=== PATIENT | male | born 1990 | race Caucasian/White ===

== ENCOUNTER 2016-08-01 06:22 | Inpatient (IN) | payer OTHER ==
[~2016-08-01] VITALS: Ht 165.1 cm; Wt 60.9 kg
--- NOTE | ~2016-08-01 | PN ---
PATIENT'S NAME: MIRIAN PRYOR [facility] AGE: 25 Y [address] ROOM: [id number] [place], [place] [address] LOCATION: [facility]U ADMIT DATE: 08/01/2016 Progress Notes DISCHARGE DATE: FAMILY PHYSICIAN: PHYSICIAN, NO ATTENDING PHYSICIAN: Kj LOUIS DATE OF SERVICE: 08/02/2016 SUBJECTIVE: This is an otherwise healthy 25-year-old male who apparently two and half weeks ago had abdominal pain and was being empirically treated for peptic ulcer disease. He also had urinary tract symptomatology and he was being treated by Pyridium. His abdominal pain got worse, in was in the suprapubic area in the right lower quadrant, and he came to the emergency room yesterday where he was found to have a ruptured appendix with a thick wall large abscess, contiguous with his bladder. On my review of the CT scan, it appears that he also has a phlegmon in the area. The plan was to treat him as a missed appendicitis and drain this percutaneously and do most likely an interval appendectomy. However, he has not been doing well. His urine output has been decreased. His pain has been increased. He had spiked a fever of over 102 last night. He has a leukocytosis on today's labs and he has only put out 15 mL since the drain was inserted and it looks sanguineous more than purulent and I am not sure that the pus may be too thick to go through the catheter. I have reviewed the CT scan of the catheter placement and looks fine. PHYSICAL EXAMINATION: He looks decidedly peaked. On his abdomen, he has almost localized peritoneal signs in the right lower quadrant suprapubic area with mild rebound tenderness in his upper abdomen and left lower quadrant. He has decreased bowel sounds. He has no masses or organomegaly. No hernias. Extremities are perfused. IMPRESSION: I believe this patient may have inadequate drainage and not because of the catheter is not in the proper place, but because the drainage may be too thick to come through the catheter and also we may be dealing with a combination of an abscess and a phlegmon in large part based on the thickness of the wall and the contiguous inflammation around this. I also have added Flagyl for better anaerobic coverage and I have hydrated him. I had nurse to scan the patient because I am concerned because of the contiguous nature of the bladder that he really was not able to void and he had over 400 in his bladder. I asked him to void, he voided 300. I have increased his fluids to hydrate him better. I have given close instructions to the nurses in terms of watching his I and O very carefully. I have also placed him on Protonix as he is on clear liquids and not taking much and I would rather decrease it and do a CT on the stomach. PATIENT'S NAME: MIRIAN PRYOR [facility] AGE: 25 Y [address] ROOM: [place] [address] LOCATION: [facility] ADMIT DATE: 08/01/2016 Progress Notes DISCHARGE DATE: FAMILY PHYSICIAN: PHYSICIAN, BARRIE ATTENDING PHYSICIAN: Kj LOUIS I am obtaining a CT scan first thing in the morning and make him n.p.o. and there is a distinct possibility that he will require open drainage and a further procedure tomorrow, if indeed his physical examination, CT scan, etc., does not improve. I have explained this in great detail to the nursing staff as well as the patient and the . MD LEE DEVINE/eduardo /[id number] d: 08/02/16 1246 t: 08/15/16 0647, PROGRESS NOTES
--- NOTE | ~2016-08-01 | HP ---
PATIENT'S NAME: MIRIAN NEWTON [facility] AGE: 25 Y [address] ROOM: [place] [address] [place] [facility] [facility] [place] DATE: 08/01/2016 History & Physical DISCHARGE DATE: FAMILY PHYSICIAN: PHYSICIAN, NO ATTENDING PHYSICIAN: Gamal Carvalho DATE OF SERVICE: CHIEF COMPLAINT: Acute appendicitis with abscess. HISTORY OF PRESENT ILLNESS: Mirian Newton is a 25-year-old male who presented to the emergency room early this morning with complaints of pain across his lower abdomen. The patient states that he first had issues about 16 days ago. He states that he worked all day, got home, and played with the kids. He developed shooting pains and sharp pains in the stomach along with nausea and vomiting. He presented to the emergency room for evaluation and workup was benign. The patient was instructed to follow up with his primary care physician in a few days. He saw Dr. Lagos and Dr. Lagos suspected a stomach ulcer and started him on Prilosec. Approximately 12 days later, the patient developed pain with urination. Dr. Lagos again prescribed what I suspect a Pyridium. Yesterday, the patient was at work and asked permission to go home because he was not feeling well. He states that he felt okay last evening and was manuring his garden. This morning he woke up with shooting pains across his lower abdomen. He tried to void and had a small bowel movement, but this does not relieve the pain at all. He denies any nausea or vomiting. The patient drove himself to the emergency room to be evaluated again. The patient was evaluated by Dr. Guevara. His white blood cell count 10.0. ESR was 35. D-dimer was elevated at 2.24. CT of the chest, abdomen, and pelvis was obtained. Per verbal report, there is no evidence for PE. CT of the abdomen did show acute appendicitis with rupture and a [address] Carvalho was contacted for further evaluation and treatment. PAST MEDICAL HISTORY: ALLERGIES: NONE. MEDICATIONS: 1. Prilosec. 2. Pyridium. ILLNESSES: PATIENT'S NAME: MIRIAN NEWTON [facility] AGE: 25 Y [address] ROOM: [place] [id number] [place] [facility] [place]: 08/01/2016 History & Physical DISCHARGE DATE: FAMILY PHYSICIAN: PHYSICIAN, NO ATTENDING PHYSICIAN: Gamal Carvalho None. OPERATIONS: 5th digit repair after he cut his finger off. FAMILY HISTORY: Mother and father are alive. He states that mother is healthy, but father has a lot of health problems related to smoking. SOCIAL HISTORY: The patient is single. He has a 9-month-old son. He smokes marijuana one week ago. He smokes a pack of cigarettes per day. Does not consume alcohol. REVIEW OF SYSTEMS: The patient denies any recent coughs or colds. No history of any heart problems or asthma. No history of any bowel issues or inflammatory bowel disease. PHYSICAL EXAMINATION: VITAL SIGNS: Temperature is 98.6, blood pressure 136/82, pulse 82, respirations 18, O2 saturations 98% on room air. GENERAL: A 25-year-old male who is alert and oriented, pleasant, cooperative. EYES, EARS, NOSE, AND THROAT: Grossly normal. LUNGS: Clear. HEART: Regular. ABDOMEN: Has hypoactive bowel sounds. Abdomen is soft, very tender in the right lower quadrant and suprapubic region with localized peritoneal signs. EXTREMITIES: The patient appears to move all extremities equally. LAB WORK: Urinalysis was within normal limits. Procalcitonin is 0.5, D-dimer is 2.24. White blood cell count 10.0, hemoglobin 14.5, hematocrit 41.0, platelets 222. ESR 35. Troponin I less than 0.040. CRP 7.77, lactate 1.2. H pylori was negative. Sodium 141, potassium 3.7, chloride 106, CO2 of 26, glucose 90, BUN 9, creatinine 0.8, total bilirubin 0.8, alkaline phosphatase 103, AST 12, ALT 15. Amylase 35, lipase 97. CPK 89, CK-MB less than 0.5. Drug screen was positive for opiates and cannabinoid. CT scan per HPI. ASSESSMENT: A 25-year-old male with acute ruptured appendicitis with periappendiceal abscess measuring 4 cm. PLAN: The patient will be admitted to medical-surgical unit under the care of PATIENT'S NAME: KONSTANTIN MIRIAN W [facility] AGE: 25 Y [address] ROOM: [address] [address] [place] [facility] [place] DATE: 08/01/2016 History & Physical DISCHARGE DATE: FAMILY PHYSICIAN: PHYSICIAN, NO ATTENDING PHYSICIAN: Gamal Carvalho. A CT-guided percutaneous drain will be placed by Radiology. I started Zosyn 3.375 g IV q.6 hours. He will be allowed clear liquids. Activity allowed as tolerated. Morphine and Katy for pain. Zofran for nausea. We will recheck lab work tomorrow morning. I anticipate the patient will be discharged home with the drain in a couple days on oral antibiotics with returned for drain removal and plan for delayed appendectomy in 6-8 weeks. The patient was in understanding and agreement with this. Dr. Carvalho is involved in assessment and plan and will be evaluating the patient momentarily. JENI GAGE PA-C FOR MD MIGUEL MUNROEK/eduardo /[id number] CC: Derek Lagos MD D: [id number] T: [id number] HISTORY & PHYSICAL
--- NOTE | ~2016-08-01 | PN ---
PATIENT'S NAME: MIRIAN PRYOR [facility] AGE: 25 Y [address] ROOM: [place] [address] LOCATION: [facility] ADMIT DATE: 08/01/2016 Progress Notes DISCHARGE DATE: FAMILY PHYSICIAN: PHYSICIAN, NO ATTENDING PHYSICIAN: Kj LOUIS DATE OF SERVICE: 08/02/2016 This patient has increasing abdominal discomfort. There has not been any purulence noted in the drainage bag, just sanguine. On physical examination, he does have some localized peritoneal signs in the right lower quadrant and suprapubic area, with some mild rebound in other quadrants. I have discussed this with Dr. Carvalho in detail, and continue very close observation with determination in a large part based on his physical examination. MD LEE DEVINE/eduardo /[id number] d: 08/02/16 1818 t: 08/15/16 0649, PROGRESS NOTES
--- NOTE | ~2016-08-01 | OR ---
PATIENT'S NAME: MIRIAN PRYOR [facility] AGE: 25 Y [address] ROOM: [place] [address] LOCATION: [facility] ADMIT DATE: 08/01/2016 OR/Procedure Report DISCHARGE DATE: FAMILY PHYSICIAN: PHYSICIAN, NO ATTENDING PHYSICIAN: Kj PATEL SURGEON: Kj Patel MD WAX SPECIALIST: DATE OF PROCEDURE: 08/03/2016 PREOPERATIVE DIAGNOSES: 1. Acute abdomen. 2. Sepsis. 3. Missed appendicitis with ruptured appendix and appendiceal abscess. POSTOPERATIVE DIAGNOSES: 1. Acute abdomen. 2. Sepsis. 3. Gross purulent peritonitis. 4. Complex intraabdominal phlegmon/abscess. 5. Ruptured appendicitis. 6. Intraabdominal adhesions. PROCEDURES PERFORMED: 1. Exploration. 2. Drainage of gross purulent peritonitis (500 mL). 3. En bloc resection of intraabdominal phlegmon/abscess and omentum with appendix. 4. Appendectomy. ANESTHESIA: General endotracheal. INDICATIONS FOR OPERATION: I was called yesterday morning by the nurse to see if I would advance the diet from clear liquids on this patient whom I did not know or have seen prior. I told the nurse that I would rather examine the patient first. Upon examining this patient, I found out he had missed appendicitis with a ruptured appendix and an appendiceal abscess as he was initially being treated for peptic ulcer disease, although he was given Pyridium for urinary tract pain. He came to the emergency room the day prior where a CT scan showed a ruptured appendix, a thick-walled abscess, and phlegmon. He underwent, at that time, a CT-guided drainage. He was placed on antibiotics. When I saw him, he had spiked a fever through the night, which is not surprising secondary to the drainage procedure, as well as leukocytosis, again not surprising. However, the drainage from his catheter at that point was 15 mL of blood, that was the total amount. There was no purulence in it. The disconcerting aspect of the patient was his physical PATIENT'S NAME: MIRIAN PRYOR [facility] AGE: 25 Y [address] ROOM: [place] [address] LOCATION: [facility] ADMIT DATE: 08/01/2016 OR/Procedure Report DISCHARGE DATE: FAMILY PHYSICIAN: PHYSICIAN, NO ATTENDING PHYSICIAN: Kj PATEL examination. He did not look well, and he had soft, localized peritoneal signs in the right lower quadrant and suprapubic area with a question of rebound. At this point, I broadened his antibiotics, hydrated him, reviewed his CAT scans personally, and there was a question of whether he actually was voiding or had overflow incontinence because the phlegmon in the CT scan was abutting and contiguous with his bladder. He was able to void, but had pain when he did that. I was uncomfortable with his physical examination at that point and also with the fact that I did not think that his drainage catheter was draining satisfactorily as perhaps the purulence was too viscous. Nonetheless, I thought that it certainly was reasonable to continue, but I wanted to reexamine him in the morning, meaning today, in large part, physical examination as I was comfortable with his physical findings on the first day I saw him. Upon seeing him this morning, he had a very difficult night. He had continued pain. He spiked a fever to over 101 and has had leukocytosis, but the most disconcerting issue was he had, on physical examination, an acute abdomen with rigidity and rebound and looked very ill. A CT scan was done early in the morning which just showed a complex phlegmon, drain in place. Through the night, only a few cc of blood came out of that drainage. In view of this, I felt that the safest approach for this patient would be exploration. He is already on sequential compression boots. He is on antibiotics. He was taken to the operating room. DESCRIPTION OF PROCEDURE: The patient was brought to the operating room where, after satisfactory general endotracheal anesthesia, a Simmons catheter was inserted which remained until the end of the procedure. An orogastric tube was inserted which was removed at the end of the procedure. His abdomen was prepped and draped in the usual sterile fashion. I prepped his drain which was in place purposely and would not remove it until I was in the abdomen. 0.5% Marcaine with epinephrine was infiltrated for better postoperative analgesia. A midline incision was made. Skin and subcutaneous tissues were divided. Fascia was divided. Peritoneum was quite edematous, and the abdomen was entered. There was a very large phlegmon of omentum, perforated appendix, presumed abscess where the catheter was going, and small bowel which was abutting against the anterior abdominal wall, but most impressive upon entering the abdomen was there was gross purulent peritonitis, foul smelling, approximately 500 mL, which was cultured rapidly and rapidly evacuated and drained. At this point, once the gross purulent peritonitis of about 500 mL was evacuated, the abdomen was approached. At this point, I saw that the drain was in place, and I removed it intact. One could then see that there was a large phlegmon containing omentum, the perforated appendix, small bowel loops with fibrinopurulent exudates everywhere. Very carefully, dissection proceeded both through sharp and blunt dissection, and I was able to do an en bloc resection of the intraabdominal phlegmon and contained abscess with the involved omentum and the distal appendix. Hemostasis throughout the procedure obtained with electrocautery, clamping, and tie PATIENT'S NAME: MIRIAN PRYOR [facility] AGE: 25 Y [address] ROOM: [place] [address] LOCATION: [facility] ADMIT DATE: 08/01/2016 OR/Procedure Report DISCHARGE DATE: FAMILY PHYSICIAN: PHYSICIAN, NO ATTENDING PHYSICIAN: Kj PATEL ligation with heavy silk. Obviously, the omentum was clamped, divided, and tied to remove this specimen. Fortunately, I was able to see the proximal aspect of the appendix which looked normal. The cecum was edematous, but looked otherwise healthy. There was some fibrinopurulent exudate about it, but I realized that I did not have to do a partial cecectomy or even a more extended resection as I think I could utilize the proximal aspect of the appendix into an appendectomy. Therefore, the only thing holding on to this complex phlegmon was the proximal appendix. I crushed it with a crush clamp, tied with a 3-0 plain tie, and amputated it, and the specimen then went to Pathology. The tip was touched to prevent a mucocele. A pursestring suture of 3-0 silk was placed at the base of the appendix and cecum. The appendiceal stump was invaginated, and the pursestring suture was secured. Several interrupted 3-0 silk Lembert intestinal sutures were used to secure the area. At this point, very carefully, I explored this portion of the cecum and right colon by mobilizing it a bit along the line of Toldt to ensure that there was no extension of infection, and there was none. The pelvis in itself had considerable fibrinopurulent exudate on everything, but there did not appear to be any encroachment in any other organ systems, although it was contiguously situated on the bladder. There was a tremendous amount of edema in the mesentery with thickening as well as edema in the retroperitoneal tissues contiguous to the phlegmon and abscess. It should be mentioned that I was particularly careful in placing, when the patient was placed in Trendelenburg for the procedure, to also drain and evacuate any of the remaining gross purulent peritonitis underneath each diaphragm, and this was evacuated very carefully and thoroughly. At this point, I ran the entire small bowel, and the distal small bowel had significant adhesions, but fortunately they were soft, and I was able to break them up by finger dissection, but there was fibrinopurulent exudate along the distal ileum. I straightened this out. There were no further interloop adhesions or interloop abscesses. The bowel otherwise was unremarkable. The pelvis otherwise was unremarkable. 3 L of antibiotic irrigant was utilized to irrigate out the abdomen, and the intraabdominal contents were placed back into their anatomical position. Two drains Rey-Hopson 10 mm were used, one in the right pericolic gutter. It was cut to appropriate size and sutured in place with silk on the right abdomen. On the left abdomen, another Rey-Hopson 10 mm drain was placed in the pelvis, and this was sutured in place with silk. Hemostasis was excellent. The abdomen was then closed in a single layer using #1 PDS suture. Soft tissues were irrigated, and the skin was closed with skin lexi. Telfa pad pressure dressing was applied to the wound. The patient tolerated the procedure satisfactorily. Estimated blood loss was 200 mL. Simmons catheter remained at the end of the procedure. It was extubated without difficulty. There were no untoward complications intraoperatively. PATIENT'S NAME: MIRIAN PRYOR [facility] AGE: 25 Y [address] ROOM: [id number] [place] [id number] LOCATION: [facility] ADMIT DATE: 08/01/2016 OR/Procedure Report DISCHARGE DATE: FAMILY PHYSICIAN: PHYSICIAN, NO ATTENDING PHYSICIAN: Kj PATEL MD Sajan DEVINE /[id number] d: 08/03/16 1309 t: 08/03/16 1626, OPERATIVE SUMMARY
--- NOTE | ~2016-08-01 | PN ---
PATIENT'S NAME: MIRIAN PRYOR [facility] AGE: 25 Y [address] ROOM: [id number] [place], [place] [address] LOCATION: [facility]U ADMIT DATE: 08/01/2016 Progress Notes DISCHARGE DATE: FAMILY PHYSICIAN: PHYSICIAN, NO ATTENDING PHYSICIAN: Kj LOUIS DATE OF SERVICE: 08/03/2016 I was called by the nurse yesterday morning to see if she could advance this patient who I was unaware of, I have not seen before, from clear liquids to soft diet. I evaluated the patient at that time and found him to have a remarkable physical examination and as dictated priorly, I was concerned of inadequate drainage of his ruptured appendix and intraabdominal abscess, this was of the missed appendicitis approximately two and half weeks ago. Through the night, he has had increasing abdominal pain, nausea, almost emesis. He was febrile to 101.9. He has had minimal drainage from the drainage catheter and mostly sanguine. Most remarkable is on physical examination, he has an acute abdomen with peritoneal signs with rebound and rigidity, and he does not look well. CT scan to my eye shows complex phlegmon in the pelvis contiguous to the bladder and bowel. I think in large part because of his progressive and worsening physical examination and now having acute abdomen, that the safest approach on him is exploration with drainage of possible appendectomy, possible bowel resection, possible cecostomy. The complete discussion has been held and carried out with the patient regarding the operative procedure and risks. Discussed included but was not limited to, major complications such as heart attack, , allergic reaction, pulmonary embolus, and anesthesia difficulties as well. Specific complications with the procedure itself that had been infection, cellulitis, sepsis, mesh removal, break down bleeding, hematoma, ecchymosis, fistula, requirement of an ostomy, requirement of further operative interventions, dehiscence, fistula formation, requirement stage procedures, injury to the bladder, injury to the contiguous structures, neurologic and anesthetic abnormalities as related procedure itself. The patient was offered further admission and complications, which is now outlined as initial aberration. Furthermore, the patient understands his medical problem well in the surgical approach plans as evidence by I am asking good question and he answers accordingly. KJ LOUIS MD MH/modl PATIENT'S NAME: MIRIAN PRYOR [facility] AGE: 25 Y [address] ROOM: [place] [address] LOCATION: [facility] ADMIT DATE: 08/01/2016 Progress Notes DISCHARGE DATE: FAMILY PHYSICIAN: BARRIE HUERTA ATTENDING PHYSICIAN: Kj LOUIS /[id number] d: 08/03/16641 t: 08/15/16 0652, PROGRESS NOTES
--- NOTE | ~2016-08-01 | ER ---
PATIENT'S NAME: MIRIAN PRYOR [facility] AGE: 25 Y [address] ROOM: [address] [address] LOC[place]: [facility] [place] DATE: 08/01/2016 ER/Outpatient Report DISCHARGE DATE: FAMILY PHYSICIAN: PHYSICIAN, NO ATTENDING PHYSICIAN: Gamal Carvalho Admission date and time documented on the medical record. I saw the patient at 0630 hours. CHIEF COMPLAINT: Low abdominal pain. HISTORY OF PRESENT ILLNESS: The patient is a 25-year-old male who presented to the emergency room for evaluation. The patient drove himself here. He states that 30 minutes prior to coming in the emergency room. He was woken from sleep with severe mid lower abdominal pain. No low back pain. No upper abdominal pain. No chest pain. No shortness of breath. Denies any nausea, vomiting, and diarrhea. He has had some urinary dysuria over the past few days, but none this morning. Thinks he urinated this morning when he got up. The patient had some kind of generalized abdominal discomfort yesterday morning and he did not feel well enough to keep on working, so he left work around noon. Does not sound like he had any severe pain at all yesterday or through the night until early this morning around 0600 hours. The patient had mid upper abdominal pain about 2 weeks ago and had a complete workup here in the emergency department with a normal CT scan of the abdomen and pelvis. He has seen his personal physician a couple times with mid upper abdominal pain, thought to be gastritis or peptic ulcer disease. No recent coughs, colds, or flus. No fever, chills, or sweats. He did have some hot flashes. Pain is stabbing in nature, nonradiating. No change in his bowel movements or habits. No joint or muscle swelling, redness, or pain. No skin eruptions or rash. No history of neuro changes, psych issues, or endocrine problems. HOME MEDICATIONS: See attached medication list. ALLERGIES: NONE. SOCIAL HISTORY: The patient smokes a pack of cigarettes per day. Does use marijuana. Occasional intake of alcohol. Denies any other illicit drugs. SIGNIFICANT PAST MEDICAL HISTORY: Tobacco abuse, marijuana abuse, questionable peptic ulcer disease. PATIENT'S NAME: MIRIAN PRYOR [facility] AGE: 25 Y [address] ROOM: [address] [address] LOCATION: [facility] [place] DATE: 08/01/2016 ER/Outpatient Report DISCHARGE DATE: FAMILY PHYSICIAN: PHYSICIAN, NO ATTENDING PHYSICIAN: Gamal Carvalho OPERATIONS: Left hand surgery. REVIEW OF SYSTEMS: All systems reviewed by me are negative with exception of those discussed in the history of present illness. PHYSICAL EXAMINATION: VITAL SIGNS: Temperature 98.6 tympanic, pulse 82, respirations 18, blood pressure 136/82, O2 saturation on room air is 98%. HEAD: Normocephalic. No abrasion, contusion, laceration, or swelling of the scalp or face. EYES: Extraocular muscles intact. PERRL. EARS, NOSE, THROAT: Clear. Mucous membranes moist. NECK: Negative. SPINE: Negative. LUNGS: Clear. Good air flow. No rales, rhonchi, or wheezes. HEART: Regular. Pulses are palpable. ABDOMEN: Nondistended, guarding, rebound tenderness across the lower abdomen. It is soft in the upper abdomen with normal bowel tones. No CVA tenderness. EXTREMITIES: Intact. NEUROVASCULAR: Intact. SKIN: Clear. IMAGING DATA: Three abdominal x-rays show no perforation, obstruction, or acute lung infiltrate. We will review plain film with the radiologist. LABORATORY DATA: Urine drug screen was positive for marijuana and opiates. The patient did get IV morphine prior to him able to give us a urine sample which probably accounts for his opioid positive test. CMS was normal. Amylase and lipase were normal. CPK was normal at 89. Point of care cardiac enzymes were normal. H pylori was negative. Lactate was 1.2. Procalcitonin was less than 0.05. D-dimer was positive 2.24. CRP was elevated at 7.77. [place] [address], 75 segs, 16 lymphs, 8 monos, 1 eo, hemoglobin is 14.5, hematocrit 41.0, platelet count is 222,000, sedimentation rate was elevated at 35. Urinalysis was clear. EMERGENCY DEPARTMENT COURSE: I did start the patient on IV normal saline, fluids. Gave him a liter, then started him on 150 mL an hour. Gave him Protonix 40 mg IV in the emergency room, Zofran 4 mg IV in the emergency room, morphine IV in the emergency for pain, Toradol 30 mg IV in the emergency room for pain. We went ahead with the PATIENT'S NAME: MIRIAN PRYOR [facility] AGE: 25 Y [address] ROOM: [id number] [place], [place] [address] LOCATION: [facility] [place] ADMIT DATE: 08/01/2016 ER/Outpatient Report DISCHARGE DATE: FAMILY PHYSICIAN: PHYSICIAN, NO ATTENDING PHYSICIAN: Gamal Carvalho CT scan of the abdomen and pelvis and also CT scan of the chest with PE protocol because of his elevated D-dimer. I did this with IV contrast. Radiologist reviewed the CT scans. There was no evidence of PE or intrathoracic abnormalities. The patient does have a ruptured appendix with abscess. No other abnormalities in the abdomen. IMPRESSION: Mid low abdominal pain with guarding secondary to a ruptured appendicitis with abscess. PLAN: I did discuss this patient with Dr. Carvalho. Dr. Carvalho is going to see the patient, review the CT scans, and then we will proceed on his recommendations. I did discuss my findings and recommendations with the patient, he understands. MD MEGAN VILLASENOR/eduardo /[id number] d: 08/01/16 1258 t: 08/02/16 1814, OUTPATIENT REPORT
--- NOTE | ~2016-08-01 | DS ---
PATIENT'S NAME: MIRIAN NEWTON [facility] AGE: 25 Y [address] ROOM: [id number] [place], [place] [address] LOCATION: [facility] ADMIT DATE: 08/01/2016 Discharge Summary DISCHARGE DATE: 08/10/2016 FAMILY PHYSICIAN: BARRIE HUERTA ATTENDING PHYSICIAN: Kj Patel DIAGNOSIS: Perforated acute appendicitis with associated abscess. SUMMARY: Mr. Newton is a 25-year-old male, who presented to the emergency room on August 01, 2016, with complaints of pain across his lower abdomen. The patient had been having issues for approximately 16 days. He had been previously seen in the emergency room where a CT scan of the abdomen and pelvis was negative. He had followed up with Dr. Mccollum at [facility] [place] and had been placed on Prilosec. He had then developed some pain with urination and was started on a medication that I suspected was Pyridium. The patient woke up on the morning of August 01, 2016, with severe pain. He was evaluated by Dr. Guevara in the ER where his white blood cell count was 10.0. CT of the chest, abdomen, and pelvis was done. CT of the chest was negative for PE. CT of the abdomen and pelvis showed acute appendicitis with rupture and a [address] Bynum was asked to evaluate the patient, and a decision was made to have a drain placed into the abscess along with admission for IV antibiotics. The patient was started on clear liquids, Zosyn 3.375 g IV q.6 hours was ordered, activity was allowed as tolerated, morphine and [place] were ordered for pain, Zofran for nausea. The following day, Dr. Patel, the locum surgeon, evaluated the patient after being called for a diet order. He ordered a repeat CT scan, which showed the abdominal abscess, drainage catheter to be in place with decrease in the size of the abscess measuring 2.4 cm compared to 4.2 cm previously. A small amount of free fluid was seen. He was made n.p.o. Flagyl was added. On August 03, 2016, Dr. Patel made recommendations to proceed to the operating room for an exploration with drainage of the abscess and appendectomy. Please see Dr. Patel's procedure note for specifics. Postoperatively, the patient was transferred to the progressive care unit. He continued on Zosyn and Flagyl. Dilaudid and Toradol were ordered for pain control. Lovenox was ordered for DVT prophylaxis. On postop day 1, the patient was encouraged to ambulate. A LABEL DRIER was started for pain control as the patient was requiring the pain medicine on a regular basis. IV acetaminophen was also added for pain control. He was afebrile. Vital signs were stable. White blood cell count was 18,600. On postop day 2, the patient was ambulating within the room himself. He was belching but no flatus. White blood cell count was down to 12.7. That night, the patient had a lot of nausea and a small amount of emesis. Phenergan and Compazine were added for nausea. Discussion on possible NG placement was discussed. On postop day 3, the patient was out in the hallways walking. The nausea and vomiting had improved. He was not passing flatus yet. His AMARIS drains that were left in at the time of surgery PATIENT'S NAME: MIRIAN NEWTON [facility] AGE: 25 Y [address] ROOM: [id number] [place] [id number] LOCATION: [facility] ADMIT DATE: 08/01/2016 Discharge Summary DISCHARGE DATE: 08/10/2016 FAMILY PHYSICIAN: PHYSICIAN, NO ATTENDING PHYSICIAN: Kj Patel were decreasing in volume and had no purulent drainage. The patient was kept n.p.o. given the nausea and vomiting that he had. On postop day 4, he continued to be afebrile. Nausea was better. The patient was allowed sips of water and ice chips. On postop day 5, he was passing flatus and clear liquids was started. He was advanced the diet as tolerated. On postop day 6, LABEL DRIER was discontinued. Fairview was started for pain. On postop day 7, the patient was anxious to go home. He was tolerating p.o. intake. He had passed flatus but no bowel movement. Vital signs were stable. I believe drains and a portion of the lexi were removed. DISCHARGE INSTRUCTIONS: Include no restrictions on diet. No heavy lifting. He is to follow up with Dr. Pino in 7 to 10 days. DISCHARGE MEDICATIONS: Fairview 5/325 one to two p.o. q.4 hours p.r.n. pain, dispensing 30 with no refills. PATHOLOGY: Final pathology report shows acute appendicitis with associated ulceration, abscess formation, fat necrosis, and fibrosis. For specifics on day-to-day care please refer to the hospital chart. JENI GAGE PA-C FOR SHILPA BYNUM MD KDK/veronical /[id number] CC: Derek Lagos MD d: 08/13/16 0409 t: 08/13/16 1005, DISCHARGE SUMMARY
[2016-08-01 07:13] LABS: BASOPHIL % 0.3 %; EOSINOPHIL # 0.1 K/uL (0.0-0.5); EOSINOPHIL % 1.3 %; HEMOGLOBIN 14.5 g/dL (12.0-17.0); IMMATURE GRANULOCYTE % 0.3 %; LYMPHOCYTE # 1.6 K/uL (0.8-4.0); LYMPHOCYTE % 15.7 %; MCH 30.6 pg (27.0-34.0); MCHC 35.4 gm/dL (32.0-36.5); MCV 86.5 fl (83.0-98.0); MONOCYTE # 0.8 K/uL (0.0-1.0); MONOCYTE % 7.5 %; MPV 9.4 fl (9.4-12.4); NEUTROPHIL # (ANC) 7.5 K/uL (1.4-9.0); NEUTROPHIL % 74.9 %; NRBC % 0 /100WBC (0-0.00); PLATELET COUNT 222 K/uL (150-450); RBC 4.74 M/uL (4.00-6.00)
[2016-08-01 07:34] LABS: ALBUMIN 3.6 gm/dL (3.5-5.0); ALK PHOS 103 IU/L (33-138); ALT 15 IU/L (12-78); ANION GAP 12.7 (10.0-19.0); AST 12 IU/L (10-40); BLOOD UREA NITROGEN 9 mg/dL (6-24); CALCIUM 8.6 mg/dL (8.5-10.5); CHLORIDE 106 mMol/L (96-110); CO2 26 mMol/L (22-32); CPK 89 IU/L (35-332); CREATININE 0.8 mg/dL (0.6-1.3); ESTIMATED GFR (MDRD EQUATION) > 60; POTASSIUM 3.7 mMol/L (3.7-5.1); SODIUM 141 mMol/L (135-145); TOTAL BILIRUBIN 0.8 mg/dL (0.0-1.5); TOTAL PROTEIN 7.6 g/dL (6.0-8.4)
[2016-08-01 07:45] LABS: BILIRUBIN URINE NEGATIVE (NEGATIVE); BLOOD URINE NEGATIVE /UL (NEGATIVE); COLOR URINE YELLOW (YELLOW); GLUCOSE URINE NEGATIVE (NEGATIVE); KETONE URINE NEGATIVE (NEGATIVE); LEUKOCYTES URINE NEGATIVE /UL (NEGATIVE); NITRITE URINE NEGATIVE (NEGATIVE); PROTEIN URINE NEGATIVE (NEGATIVE); TURBIDITY URINE CLEAR (CLEAR); UROBILINOGEN URINE NORMAL (NORMAL)
[2016-08-01 08:02] LABS: BARBITURATE NEGATIVE (NEGATIVE); COCAINE NEGATIVE (NEGATIVE); OPIATES POSITIVE (NEGATIVE)
[2016-08-01 08:03] LABS: AMPHETAMINE NEGATIVE (NEGATIVE)
[2016-08-01 09:46] LABS: PROTIME 10.9 SECONDS (9.6-11.1)
--- NOTE | 2016-08-01 10:01 | NUR ---
Pt is 25 y/o male admit for ruptured appendix for . Pt alert and oriented x3. No allergies. Resides at home with his significant other and his son. No significant medical hx. Pt states his abd pain started about 16 days ago and at first was in his upper abd and then moved to lower abd. Denies fevers or chills. Reports he's had burning with urination for about the past 4-5 days. States he's had a test for STD's and it was negative. Plan is for drain placement today and surgery at a later time.
--- NOTE | 2016-08-01 14:24 | NUR ---
Significant Event: Pt admitted from ER around 1030 for ruptured appendix. Up with standby assist. having a lot of pain. MS 4mg IV given x2 so far with partial relief. Small emesis. Zofran IV given around 1230. To CT for Ct guided drain at 1330 back at 1430. on IVATB. may have clear liquids after procedure. a/o x3. Follow up:
--- NOTE | 2016-08-02 02:45 | NUR ---
Significant Event: Patient alert and oriented X4. Up with stand by assist. Pain with ambulation. Voided X2. IV to L) forearm. Running NS at 100ml/hr with intermittent zosyn. [place] given last at 0130. Relief noted. Temp was 101.0 at shift change. Now is 97.6 after norco, turning heat down and cool washcloth. Patinet able to rest tonight. Vitals stable. Was tachy at beginning, now HR in 80s. Drain to lower abdomen, dressing shows shadow drainage. Follow up: Monitor drain/temp
[2016-08-02 05:45] LABS: BASOPHIL % 0.2 %; EOSINOPHIL # 0.1 K/uL (0.0-0.5); EOSINOPHIL % 0.5 %; HEMOGLOBIN 11.4 g/dL (12.0-17.0); IMMATURE GRANULOCYTE # 0.1 K/uL (0.0-0.3); IMMATURE GRANULOCYTE % 0.4 %; LYMPHOCYTE # 1.1 K/uL (0.8-4.0); LYMPHOCYTE % 7.5 %; MCHC 34.9 gm/dL (32.0-36.5); MCV 88.9 fl (83.0-98.0); MONOCYTE # 1.1 K/uL (0.0-1.0); MONOCYTE % 7.4 %; MPV 9.7 fl (9.4-12.4); NEUTROPHIL # (ANC) 12.3 K/uL (1.4-9.0); NRBC % 0 /100WBC (0-0.00); PLATELET COUNT 196 K/uL (150-450); RBC 3.68 M/uL (4.00-6.00); RDW-CV 12.5 % (11.9-14.6); WBC 14.7 K/uL (4.0-11.0)
[2016-08-02 05:51] LABS: HEMATOCRIT 32.7 % (37.0-53.0)
[2016-08-02 06:03] LABS: ALBUMIN 2.7 gm/dL (3.5-5.0); ANION GAP 8.7 (10.0-19.0); BLOOD UREA NITROGEN 10 mg/dL (6-24); CALCIUM 8.2 mg/dL (8.5-10.5); CHLORIDE 108 mMol/L (96-110); CO2 29 mMol/L (22-32); CREATININE 0.8 mg/dL (0.6-1.3); ESTIMATED GFR (MDRD EQUATION) > 60; PHOSPHORUS 2.9 mg/dL (2.5-4.9); POTASSIUM 3.7 mMol/L (3.7-5.1); SODIUM 142 mMol/L (135-145)
--- NOTE | 2016-08-02 14:42 | NUR ---
Pt alert and oriented x3. Having pain issues. Requesting to eat regular food. , surgeon claim professional notified to obtain diet. preferred to see pt first. Came to floor to see pt and had other concerns. concerned about scant bloody drg from abscess drain placed yesterday afternoon and concerns about pt being able to void because of location of abscess. Pt had not had any complaints about problems voiding thus far in the shift. PT has also been afebrile this shift. [place]rtanna given at 0800 for pain with relief expressed. Pt bladder scanned per and had 437 ml. Pt voided shortly after and had 325 ml out. ordered pt NPO after midnight for a CT scan at 0500 in am as well as a 500ml fluid bolus,Flagyl IV, and other pertinent orders. See chart. PT's significant other and son to visit.
--- NOTE | 2016-08-02 17:19 | NUR ---
Significant Event: Pain is being managed with IV dilaudid. He does have PO meds listed on med profile but per patient Dr. Patel told him not to take those. 20ml sanguinous drainage from drain. Blood cultures drawn today. Plan is for CT scan at 0500 in am, with possible surgery afterwards with Dr. Patel. Follow up:
--- NOTE | 2016-08-03 04:26 | NUR ---
Significant Event: Patient reporting pain of 7-8, and bloating most of the night when getting dilaudid. However did appear to be resting well when checked. Is to have a CT scan this am of abdomen to see if he should go to surgery this morning with Dr. Patel. Had a temp of 101.3 and was given tylenol and it dropped back down to 100.9. Blood cultures have already been drawn. Voiding adequately. Drain to right side has bloody drainage, but not enough to measure. Refused to walk stating he can't, it is to painful. Encouraged to cough and deep breath, but that is to painful also. Follow up: CT scan.
[2016-08-03 05:52] LABS: BASOPHIL % 0.2 %; EOSINOPHIL # 0.1 K/uL (0.0-0.5); EOSINOPHIL % 0.8 %; HEMATOCRIT 34.4 % (37.0-53.0); HEMOGLOBIN 11.8 g/dL (12.0-17.0); IMMATURE GRANULOCYTE # 0.1 K/uL (0.0-0.3); IMMATURE GRANULOCYTE % 0.7 %; LYMPHOCYTE # 0.9 K/uL (0.8-4.0); MCH 30.5 pg (27.0-34.0); MCHC 34.3 gm/dL (32.0-36.5); MCV 88.9 fl (83.0-98.0); MONOCYTE # 1.2 K/uL (0.0-1.0); MONOCYTE % 7.3 %; MPV 9.7 fl (9.4-12.4); NEUTROPHIL # (ANC) 13.3 K/uL (1.4-9.0); NRBC % 0 /100WBC (0-0.00); PLATELET COUNT 194 K/uL (150-450); RBC 3.87 M/uL (4.00-6.00); RDW-CV 12.3 % (11.9-14.6); WBC 15.7 K/uL (4.0-11.0)
[2016-08-03 06:00] LABS: INR - (THERAPEUTIC) 1.2 (0.9-1.1); PROTIME 13.3 SECONDS (9.6-11.1)
[2016-08-03 06:17] LABS: ALBUMIN 2.6 gm/dL (3.5-5.0); ALK PHOS 80 IU/L (33-138); ALT 11 IU/L (12-78); ANION GAP 12.7 (10.0-19.0); AST 9 IU/L (10-40); BLOOD UREA NITROGEN 8 mg/dL (6-24); CALCIUM 8.1 mg/dL (8.5-10.5); CHLORIDE 104 mMol/L (96-110); CO2 26 mMol/L (22-32); CREATININE 0.7 mg/dL (0.6-1.3); ESTIMATED GFR (MDRD EQUATION) > 60; POTASSIUM 3.7 mMol/L (3.7-5.1); SODIUM 139 mMol/L (135-145); TOTAL BILIRUBIN 1.3 mg/dL (0.0-1.5); TOTAL PROTEIN 6.2 g/dL (6.0-8.4)
--- NOTE | 2016-08-03 13:38 | NUR ---
Patient taken to surgery w/Dr Patel. Transferred to PCU postop.
--- NOTE | 2016-08-03 18:58 | NUR ---
PATIENT CAME TO FLOOR AT 1300 FROM PACU. PATIENT WAS A TRANSFER FROM [facility]. PATIENT HAD AN ABDOMINAL DRESSING AND 2 AMARIS DRAINS RT AND LT. PATIENT HAS COMPLAINED OF PAIN IN ABDOMIN THROUGHOUT DAY. DILAUDID HAS BEEN GIVEN FOR PAIN AND HE STATES IT DOES HELP AND HE IS FOUND TO BE SLEEPING AFTER DOSE.
[2016-08-04 04:01] LABS: BASOPHIL % 0.2 %; EOSINOPHIL % 0.1 %; HEMATOCRIT 36.3 % (37.0-53.0); HEMOGLOBIN 12.8 g/dL (12.0-17.0); IMMATURE GRANULOCYTE # 0.2 K/uL (0.0-0.3); IMMATURE GRANULOCYTE % 0.8 %; LYMPHOCYTE # 0.7 K/uL (0.8-4.0); LYMPHOCYTE % 3.8 %; MCH 30.8 pg (27.0-34.0); MCHC 35.3 gm/dL (32.0-36.5); MCV 87.3 fl (83.0-98.0); MONOCYTE % 5.4 %; MPV 9.3 fl (9.4-12.4); NEUTROPHIL # (ANC) 16.7 K/uL (1.4-9.0); NEUTROPHIL % 89.7 %; NRBC % 0 /100WBC (0-0.00); RBC 4.16 M/uL (4.00-6.00); RDW-CV 12.4 % (11.9-14.6)
[2016-08-04 04:06] LABS: PLATELET COUNT 276 K/uL (150-450); WBC 18.6 K/uL (4.0-11.0)
[2016-08-04 04:10] LABS: INR - (THERAPEUTIC) 1.2 (0.9-1.1); PROTIME 12.3 SECONDS (9.6-11.1); PTT 30 SECONDS (25-32)
[2016-08-04 04:12] LABS: ALBUMIN 2.5 gm/dL (3.5-5.0); ALK PHOS 66 IU/L (33-138); ALT 11 IU/L (12-78); ANION GAP 11.3 (10.0-19.0); AST 10 IU/L (10-40); BLOOD UREA NITROGEN 5 mg/dL (6-24); CALCIUM 8.3 mg/dL (8.5-10.5); CHLORIDE 106 mMol/L (96-110); CO2 27 mMol/L (22-32); CREATININE 0.6 mg/dL (0.6-1.3); ESTIMATED GFR (MDRD EQUATION) > 60; POTASSIUM 4.3 mMol/L (3.7-5.1); SODIUM 140 mMol/L (135-145); TOTAL BILIRUBIN 0.5 mg/dL (0.0-1.5)
--- NOTE | 2016-08-04 06:40 | NUR ---
NEURO: A&O. CARDIO: WNL. Tele. RESP: upper 90's on RA. GI/: Heard. Order to dc heard tomorrow morning at 0600 (August 05). Nausea with every dose of pain med. Zofran Q6H PRN. Hypo BS. Can have sips of water and popsicles. SKIN: Abdominal incision stapled. ABD to site. 2 beth drains with split drain gauze around them. IV: L FA. Fluids at 125. IV flagyl and Pip/tazo. ACTIVITY: wrote order to walk and up to chair QID. SBA. PAIN: IV dilaudid and morphine. PLAN: Continue with paln of care. Discharge when appropriate.
--- NOTE | 2016-08-04 16:13 | NUR ---
Introduced self and care management services to patient. Independent at home, plans on going home on discharge. Denies discharge planning needs. Has concern about being in ER 2 weeks before this hospital stay and not finding appendicitis then. Listened to his concerns and gave him a speakup form so his concern gets to the right person to review. Will follow.
--- NOTE | 2016-08-04 19:16 | NUR ---
Significant Event: INCISION TO ABDOMEN APPROXIMATED, ALDEN INTACT, ABD DRESSING COVERING INCISION, NOTE SCANT AMOUNT OF BLOODY DRAINAGE AT PROXIMAL END OF INCISION. AMARIS DRAINS X2 PATENT, DRAINING SEROSANGUINOUS DRAINAGE. L) AMARIS DRAIN (#2) WITH 75ML OUT, AND R) AMARIS DRAIN (#1) WITH 50ML OUT. PAIN WELL CONTROLLED WITH HOME PARAPROFESSIONAL. RATES PAIN 7-6 ON PAIN SCALE. AMBULATED IN ROOM X2, TOLERATED WELL. TOOK SIPS OF WATER, BOWEL SOUNDS RARE, NOTE PATIENT BELCHING AT TIMES. VSS, AFEBRILE. [place]LLINS PATENT, WITH 2700 ML OUT. IV TO L) ANTERIOR FOREARM. REMAINS ON IV ANTIBIOTICS. ALSO RECEIVED OFIRMEV IV LAST AT 1600. Follow up: AMBULATE 4 TIMES A DAY, HOLLINS TO BE REMOVED AT 0600.
[2016-08-05 05:45] LABS: BASOPHIL % 0.2 %; EOSINOPHIL # 0.3 K/uL (0.0-0.5); EOSINOPHIL % 2.1 %; HEMATOCRIT 35.6 % (37.0-53.0); HEMOGLOBIN 11.8 g/dL (12.0-17.0); IMMATURE GRANULOCYTE # 0.1 K/uL (0.0-0.3); IMMATURE GRANULOCYTE % 0.9 %; LYMPHOCYTE # 1.8 K/uL (0.8-4.0); LYMPHOCYTE % 14.1 %; MCH 29.9 pg (27.0-34.0); MCHC 33.1 gm/dL (32.0-36.5); MCV 90.4 fl (83.0-98.0); MONOCYTE # 0.9 K/uL (0.0-1.0); MONOCYTE % 6.9 %; MPV 9.2 fl (9.4-12.4); NEUTROPHIL # (ANC) 9.6 K/uL (1.4-9.0); NEUTROPHIL % 75.8 %; NRBC % 0 /100WBC (0-0.00); PLATELET COUNT 260 K/uL (150-450); RBC 3.94 M/uL (4.00-6.00); RDW-CV 12.5 % (11.9-14.6); WBC 12.7 K/uL (4.0-11.0)
[2016-08-05 05:53] LABS: INR - (THERAPEUTIC) 1.1 (0.9-1.1); PROTIME 11.5 SECONDS (9.6-11.1); PTT 28 SECONDS (25-32)
[2016-08-05 06:05] LABS: ALBUMIN 2.7 gm/dL (3.5-5.0); ALK PHOS 62 IU/L (33-138); ALT 14 IU/L (12-78); ANION GAP 11.7 (10.0-19.0); AST 14 IU/L (10-40); BLOOD UREA NITROGEN 7 mg/dL (6-24); CALCIUM 8.3 mg/dL (8.5-10.5); CHLORIDE 106 mMol/L (96-110); CO2 27 mMol/L (22-32); CREATININE 0.7 mg/dL (0.6-1.3); ESTIMATED GFR (MDRD EQUATION) > 60; POTASSIUM 3.7 mMol/L (3.7-5.1); SODIUM 141 mMol/L (135-145); TOTAL BILIRUBIN 0.4 mg/dL (0.0-1.5); TOTAL PROTEIN 6.4 g/dL (6.0-8.4)
--- NOTE | 2016-08-05 06:14 | NUR ---
Significant Event: A/O, VSS on RA, abdominal incision has old drainage present, closed intact, R) AMARIS- 15ml, L) AMARIS- 35ml, Diluadid PUBLIC HEALTH TRAINING ASSISTANT continues with 10/10 demands delivered, ambulated to bathroom, cooperative with cares, belching, no flatus, zofran x2 Follow up: continue plan of care
--- NOTE | 2016-08-05 17:39 | NUR ---
Significant Event: pt up in room to bathroom 4 or 5times, up in [place] this afternoon 1asst. AMARIS drains intact. Incision intact and dry. Zofran at 1330 for nausea. Pt advanced to sips water as zeynep. but being very causcious. No BM or flatulence just belching. Follow up:
--- NOTE | 2016-08-06 05:12 | NUR ---
Significant Event: A/O x3. VSS on RA. SBP's in 140s. Abdominal incision is open to air with lexi, closed and intact. R) AMARIS had 20 ml out. L) AMARIS had 30 ml out. Two emesis tonight. Last was about 40 ml of green bile. Dilaudid SPLITTER TENDER continues with 0.2mg continous and 0.2mg demand with a total of 8 demands and 8 deliveries. Belching, hypoactive bowel sounds, no flatus. Zofran given 1900 and 0100. Phenergan given. Compazine given around 0520. Refused Ofirmev. Remains on IV antibiotics. IV to L) anterior forearm with D51/2NS with 20KCl running at 125 ml/hr. Needs lots of encouragement to get out of bed. Refused to get out of bed this shift. Education done on importance of ambulating after surgery. Follow up: Continue with plan of care.
[2016-08-06 06:10] LABS: BASOPHIL # 0.1 K/uL (0.0-0.2); BASOPHIL % 0.4 %; EOSINOPHIL # 0.2 K/uL (0.0-0.5); EOSINOPHIL % 1.9 %; HEMATOCRIT 38.1 % (37.0-53.0); HEMOGLOBIN 13.2 g/dL (12.0-17.0); IMMATURE GRANULOCYTE # 0.1 K/uL (0.0-0.3); LYMPHOCYTE # 1.2 K/uL (0.8-4.0); MCH 30.5 pg (27.0-34.0); MCHC 34.6 gm/dL (32.0-36.5); MONOCYTE # 1.1 K/uL (0.0-1.0); MPV 8.7 fl (9.4-12.4); NEUTROPHIL # (ANC) 9.5 K/uL (1.4-9.0); NEUTROPHIL % 77.7 %; NRBC % 0 /100WBC (0-0.00); PLATELET COUNT 275 K/uL (150-450); RBC 4.33 M/uL (4.00-6.00); RDW-CV 12.1 % (11.9-14.6); WBC 12.2 K/uL (4.0-11.0)
[2016-08-06 07:50] LABS: ALBUMIN 2.9 gm/dL (3.5-5.0); BLOOD UREA NITROGEN 8 mg/dL (6-24); CALCIUM 8.5 mg/dL (8.5-10.5); CHLORIDE 102 mMol/L (96-110); CO2 29 mMol/L (22-32); CREATININE 0.7 mg/dL (0.6-1.3); ESTIMATED GFR (MDRD EQUATION) > 60; PHOSPHORUS 4.1 mg/dL (2.5-4.9); SODIUM 137 mMol/L (135-145)
--- NOTE | 2016-08-06 14:01 | NUR ---
A - PT SCREENED D/T LOS. S/P RUPTURED APPENDIX W/ ABCESS. AMARIS DRAIN x 2. EMESIS. NAUSEA - MEDS GIVEN. ABD INCISION. BOWEL SOUNDS RARE. LABS: GLU 110, ALB 2.9, CRP 7.77, WBC 12.2. MEDS: D5NS, FLAGYL, PROTONIX, ZOSYN, NAUSEA. HT: 65" WT: 145# BMI: 24.2 DIET: NPO x 3, SIPS NEEDS: 0419-0690 KCAL (25-30 KCAL/KG), 66-79 G PRO (1-1.2 G/KG), 1980 ML FLUID (30 ML/KG) D - INADEQUATE NUTRIENT INTAKE R/T ALTERED GI FUNCTION AEB RECENT ABD SURGERY, N/V, RARE BOWEL SOUNDS. I - GOAL FOR NUTRITION INITIATION W/IN 48 HRS. IF UNABLE TO START ORAL DIET MAY NEED PARENTERAL NUTRITION TO MEET NEEDS. M/E - WILL MONITOR GI FUNCTION, DIET F/U IN 2-3 DAYS.
--- NOTE | 2016-08-06 15:45 | NUR ---
Significant Event: AOx3. VSS. CSM WNL. ETL INFORMATICA ARCHITECT DIlaudid running at 02/0.2/10mg. Zofran given last dose at 1530. Ambulated in [place] x3. bowel sounds hypoactive. no flatus. NPO. Refused swab. Up with SBA with IV. Follow up:
--- NOTE | 2016-08-07 07:50 | NUR ---
Significant Event: Patient is alert and oriented x 3. VSS on room air. HRs in the 60s-70s. SBPs in the 130s-140s. Afebrile. Up with stand by assist. Ambulated in the halls x 1. Bowel sounds present. [place] to abdomen are intact, edges well approximated. AMARIS drains x 2 to left and right side of abdomen intact. Left had 30 mls out. Right had 10 mls out. Zofran given for nausea at 2217 and Compazine last at 0341. NPO. Left forearm IV with D5 1/2 NS with 20 meq KCL running at 125 ml/hr. Receives intermittent IV antibiotics. On Dilaudid HAM STRIPPER with 0.2 mg continuous and 0.2 mg demand dose with q10 minute lockout. Patient has been cooperative with cares this shift. Follow up:
--- NOTE | 2016-08-07 16:52 | NUR ---
Significant Event: Alert and oriented X 3. Room air. ETCO2 spot checks, refuses to leave on. ETCO2 this shift 34, 31. Lungs clear. Dilaudid BUSINESS PROCESS MODELER pump 0.2 continuous, 0.2 demand and 10 minute lockout. Surgical incision mid abdomen, appoximated with lexi. 2 AMARIS drains, sites clean and no signs of infection. Showered today. Independent, needs help with IV and monitors. Zofran given X 1, last at 1330. Cause for nausea is odors. He has asked to please do not wear perfume. Pleasant and cooperative with cares. Follow up:
--- NOTE | 2016-08-08 05:37 | NUR ---
Significant Event: DILAUDID DIE PRESSER CONTINUES WITH 19 DEMANDS AND 19 DELIVERED. ABD STILL VERY TENDER TO THE TOUCH. REFUSED TO GET UP THIS SHIFT. GOOD BOWEL SOUNDS NOTED BUT NOT PASSING GAS YET. REMAINS ON ROOM AIR WITH ETCO2 36-39. DID REFUSE TO WEAR THE ETCO2 MONITOR ALL NIGHT. DID SPOT CHECKS WITH VITALS. REMAINS AFEBRILE. SLIGHTLY IRRITABLE AT TIMES. ZOFRAN AND COMPAZINE GIVEN X1 FOR NAUSEA. VOIDING WELL PER URINAL. Follow up:
--- NOTE | 2016-08-08 09:53 | NUR ---
A - NUT F/U. S/P OPEN APPY W/ PERF. ILEUS RESOLVED. ORAL DIET STARTED THIS AM. NAUSEA - MEDS GIVEN. ABD PAIN. NO NEW LABS. MEDS: D5NS, KCL, FLAGYL, PROTONIX, ZOSYN, NAUSEA. DIET: CLEAR LIQUID. NO INTAKE YET. NEEDS: 3474-5242 KCAL, 66-79 G PRO. D - INADEQUATE NUTRIENT INTAKE R/T ALTERED GI FUNCTION AEB RECENT ILEUS, NPO x 5 DAYS. I - GOAL FOR ORAL INTAKE TOLERANCE. WILL ADD ENSURE CLEAR TID M/E - WILL MONITOR INTAKE, GI FUNCTION F/U IN 3-5 DAYS.
--- NOTE | 2016-08-08 15:59 | NUR ---
Significant event: A&Ox3. HR 70-90's, SR. Afebrile. RA. SBP: 172 this AM, has since been 130's. Up independent in [place] ways. Bowel sounds active, passing gas. Tolerating clear liquids. Nausea at times, zofran given at 0730, compazine at 1300. Dilaudid NATURAL GAS PLANT TECHNICIAN continues, had 12 demands, 8 delivers, and total of 3.52 mg. 1 tab of norco gievn at 1300. R) AMARIS d/c'd, guaze and paper tape to site, small amount of serosangious discharge. L) AMARIS had 20 ml. [place] to midline abdomen intact, approximated. Follow Up: Continue current POC
[2016-08-09 03:47] LABS: BASOPHIL % 0.2 %; EOSINOPHIL # 0.2 K/uL (0.0-0.5); EOSINOPHIL % 2.5 %; HEMATOCRIT 35.8 % (37.0-53.0); HEMOGLOBIN 12.1 g/dL (12.0-17.0); IMMATURE GRANULOCYTE # 0.1 K/uL (0.0-0.3); IMMATURE GRANULOCYTE % 1.3 %; LYMPHOCYTE # 1.4 K/uL (0.8-4.0); LYMPHOCYTE % 15.6 %; MCH 30.1 pg (27.0-34.0); MCHC 33.8 gm/dL (32.0-36.5); MCV 89.1 fl (83.0-98.0); MONOCYTE # 0.9 K/uL (0.0-1.0); MONOCYTE % 10.3 %; MPV 8.6 fl (9.4-12.4); NEUTROPHIL # (ANC) 6.3 K/uL (1.4-9.0); NEUTROPHIL % 70.1 %; NRBC % 0 /100WBC (0-0.00); PLATELET COUNT 245 K/uL (150-450); RBC 4.02 M/uL (4.00-6.00); RDW-CV 12.3 % (11.9-14.6)
--- NOTE | 2016-08-09 07:11 | NUR ---
Significant Event: Patient A/O x 3. Pain to incisional area, pain tolerable with ETHICS OFFICER, 14 demands, 14 deliveries. AMARIS#2-15 ml output. Dressing intact to previous AMARIS site to right side. IV to left AC running IVF at 80 ml/hr with intermittent ABX. Lungs clear on room air. BS active, no bm this shift. Passing gas. N/V- small emesis this shift. Zofran given x 2. Ambulates SBA-steady. Clear liquid diet. Follow up: Try to advance diet?
--- NOTE | 2016-08-09 16:55 | NUR ---
Significant Event: Patient is alert and oriented x3. PERRLA. Denies N/T. Denies OROZCO. AMARIS Drain to the left of the abdomen- 15 ml out. Midline incision with lexi- open to air. Patient states the majority of his pain is along the incision. Denies N/V this shift. PO [place] given x1. PIV to left FA- Intermittent antibiotics. Ambulates without difficulty. Slight fever of 100.0. Medication given. D/C CANARY RAISER, Tele, VS q shift. Pleasant and cooperative with cares. Follow up: Home tomorrow? Supplies needed for drain and staple removal tomorrow
--- NOTE | 2016-08-10 04:35 | NUR ---
Significant Event: Patient is alert and oriented. Up ad harvey. [place] given x 3. Emesis after second norco as patient did not eat anything with the medication. VSS on room air. Afebrile. Active bowel sounds, passing flatus. AMARIS drain with 10 ml out. Pleasant and cooperative with cares. Follow up: possible discharge today.
[2016-08-10] MEDS ORDERED: NORCO 5-325 TA1 EACH PO (08:44)
--- NOTE | 2016-08-10 09:46 | NUR ---
Significant Event: PT A&O x3. VSS. Pain controlled with tylenol, 2 tabs at 0845. MOM and dulcolax R given this AM. PT up ad harvey in room. IV dc'd. Some lexi removed by MD and steristrips applied. Dismissal instructions/prescriptions given to PT, voiced understanding. PT wheeled to front lobby and dismissed to home by RN. Follow up:
== END 2016-08-10 09:20 | disposition disaster alternative care site (69) | DRG 853 ==
LOC: GMED 06:22 → GMSU 09:16 → GPCU 09:16
PROVIDERS: Emergency Medicine; Physician Assistant; Surgery; ADMIT Surgery
PROC: 0DTJ0ZZ Resection of Appendix, Open Approach (ICD-10-PCS; principal; 2016-08-03)
DX: A41.9 Sepsis, unspecified organism (principal); K35.3 Acute appendicitis with localized peritonitis; F17.210 Nicotine dependence, cigarettes, uncomplicated
CPT/HCPCS: C1729; C9113; J0131; J0780; J1170; J1650; J1885; J2270; J2405; J2543; J2550; J3010; J3480; J7030; J7040; J7050; P9045; Q9967